=== PATIENT | female | born 1990 | race Caucasian/White ===

== ENCOUNTER 2017-02-11 00:25 | Emergency (ER) | payer OTHER ==
[~2017-02-11] VITALS: Ht 167.6 cm; Wt 108.9 kg
[~2017-02-11 00:25] MED LIST: AMBIEN 10 MG TA10 MG; AMITRIPTYLINE H25 M2 PO; AMOXICILLIN 50500 MG PO; AMRIX15 MG PO; BENADRYL25 MG PO; EFFEXOR XR150 MG PO; FLEXERIL; FLEXERIL PO; GABAPENTIN800 M1 PO; HYDROCODONE-AP1 EAC6 PO; MELATONIN3 MG; MELATONIN3 MG PO; MYRBETRIQ25 MG PO; NEXPLANON68 MG SQ; NORCO 5-325 TA1 EACH PO; ONDANSETRON HCL4 M2 PO; PHENERGAN 25 MG25 M1 PO; PREDNISONE 20 M20 M1 PO; PREDNISONE 20 M20 MG PO; PRILOSEC 20 MG20 MG PO; PROPRANOLOL 20M20 M1 PO; PROTONIX40 M1 PO; TRAZODONE HCL100 MG PO; TRAZODONE HCL50 MG PO; XANAX1 MG; ZANTAC 150MG T150 MG PO; ZOFRAN ODT4 MG PO; ZYPREXA 5 MG TAB5 M2 PO; [UNRECOGNIZED DRUG - OTHER] PO
[2017-02-11] MEDS ORDERED: NORCO 10-325 T1 EACH PO (00:43)
[2017-02-11] MEDS ORDERED: CYPROHEPTADINE 44 MG PO (00:46)
[2017-02-11] MEDS ORDERED: PRAZOSIN 1 MG CA1 M1 PO (00:46)
[2017-02-11] MEDS ORDERED: MAGOX 400400 MG PO (00:47)
[2017-02-11] MEDS ORDERED: ACCUNEB SO1.25 MG/1 INH (00:48)
[2017-02-11 01:03] LABS: URINE BILIRUBIN NEGATIVE (Negative); URINE BLOOD NEGATIVE (Negative); URINE COLOR YELLOW; URINE GLUCOSE-RANDOM* NEGATIVE (Negative); URINE KETONES NEGATIVE (Negative); URINE LEUKOCYTES-REFLEX NEGATIVE (Negative); URINE PROTEIN (DIPSTICK) NEGATIVE (Negative); URINE SPECIFIC GRAVITY <= 1.005 (1.003-1.035); URINE UROBILINOGEN 0.2 E.U./dl (0.2-1.0)
[2017-02-11 01:09] LABS: ABSOLUTE NEUTROPHILS 4.6 thou/uL (1.4-8.2); BASOPHILS 0.8 % (0.0-2.0); EOSINOPHILS 3.9 % (0.0-3.0); LYMPHOCYTES 29.4 % (24.0-44.0); MCH 30.5 pg (26.0-34.0); MCHC 34.1 g/dL (28.0-37.0); MCV 89.3 fL (80.0-100.0); MONOCYTES 8.1 % (1.0-8.0); PLATELET COUNT 259 thou/uL (150-400); POLYS 57.8 % (36.0-66.0); RBC 5.26 mil/uL (4.20-5.00); RDW 14.7 % (10.5-14.5)
[2017-02-11 01:17] LABS: ANION GAP 10 mmol/L (7-16); BUN 8 mg/dL (7-18); CALCIUM 9.1 mg/dL (8.5-10.1); CHLORIDE 106 mmol/L (98-107); CO2 23 mmol/L (21-32); CREATININE 1.1 mg/dL (0.6-1.0); GLUCOSE 107 mg/dL (74-106); POTASSIUM 3.8 mmol/L (3.5-5.1); SODIUM 139 mmol/L (136-145)
[2017-02-11 01:21] LABS: ALBUMIN 3.7 g/dL (3.4-5.0); ALKALINE PHOSPHATASE 164 U/L (46-116); DIRECT BILIRUBIN < 0.1 mg/dL (<0.1-0.3); SGOT 29 U/L (15-37); SGPT 34 U/L (30-65); TOTAL BILIRUBIN 0.3 mg/dL (<0.1-1.0); TOTAL PROTEIN 7.1 g/dL (6.4-8.2)
[2017-02-11 01:24] LABS: MANUAL DIFF NO
[2017-02-11 02:39] VITALS: BP 120/66
[2017-02-12] MEDS ORDERED: NORCO 5-325 TA1 EAC1 PO (17:40)
== END 2017-02-11 02:42 | disposition home or self-care (01) ==
LOC: ER 00:25
PROVIDERS: Emergency Medicine
DX: R10.31 Right lower quadrant pain (principal); F41.9 Anxiety disorder, unspecified; K31.84 Gastroparesis; F31.9 Bipolar disorder, unspecified; F43.10 Post-traumatic stress disorder, unspecified; F17.210 Nicotine dependence, cigarettes, uncomplicated; Z90.49 Acquired absence of other specified parts of digestive tract; Z88.8 Allergy status to other drugs, medicaments and biological substances; Z88.6 Allergy status to analgesic agent

== ENCOUNTER 2017-02-11 23:56 | Emergency (ER) | payer OTHER ==
[~2017-02-11 23:56] MED LIST changes: +ACCUNEB SO1.25 MG/1 INH; +CYPROHEPTADINE 44 MG PO; +MAGOX 400400 MG PO; +NORCO 10-325 T1 EACH PO; +PRAZOSIN 1 MG CA1 M1 PO
[2017-02-12] MEDS ORDERED: NORCO 5-325 TA1 EAC1 PO (17:40)
== END 2017-02-12 10:11 | disposition left against medical advice (07) ==
LOC: ER 23:56
DX: Z53.21 Procedure and treatment not carried out due to patient leaving prior to being seen by health care provider (principal)

== ENCOUNTER 2021-09-09 14:38 | Emergency (ER) | payer OTHER ==
[~2021-09-09] VITALS: Ht 167.6 cm; Wt 93.0 kg
[~2021-09-09 14:38] MED LIST changes: +ADDERALL 20 MG20 M1 PO; +CARAFATE 11 GM/10 M1; +LATUDA80 MG; +NORCO 5-325 TA1 EAC1 PO; +REXULTI3 MG PO
[2021-09-09 15:35] LABS: ABSOLUTE NEUTROPHILS 4.9 thou/uL (1.4-8.2); BASOPHILS 0.9 % (0.0-2.0); EOSINOPHILS 1.4 % (0.0-3.0); HEMATOCRIT 47.3 % (37.0-47.0); HEMOGLOBIN 16.3 gm/dL (12.0-15.0); LYMPHOCYTES 23.9 % (24.0-44.0); MCH 34.1 pg (26.0-34.0); MCHC 34.5 g/dL (28.0-37.0); MCV 99.1 fL (80.0-100.0); PLATELET COUNT 237 thou/uL (150-400); POLYS 65.8 % (36.0-66.0); RBC 4.77 mil/uL (4.20-5.00); RDW 12.5 % (10.5-14.5); WBC 7.5 thou/uL (4.0-11.0)
[2021-09-09 15:42] LABS: URINE BILIRUBIN NEGATIVE (Negative); URINE BLOOD TRACE (Negative); URINE CLARITY CLEAR; URINE COLOR YELLOW; URINE GLUCOSE-RANDOM* NEGATIVE (Negative); URINE KETONES NEGATIVE (Negative); URINE LEUKOCYTES-REFLEX NEGATIVE (Negative); URINE NITRITE-REFLEX NEGATIVE (Negative); URINE PROTEIN (DIPSTICK) NEGATIVE (Negative); URINE UROBILINOGEN 0.2 E.U./dl (0.2-1.0)
[2021-09-09 15:54] LABS: CALCIUM 9.3 mg/dL (8.5-10.1); CREATININE 0.9 mg/dL (0.6-1.0); POTASSIUM 3.7 mmol/L (3.5-5.1)
[2021-09-09 16:00] LABS: ALBUMIN 3.6 g/dL (3.4-5.0); TOTAL BILIRUBIN 0.3 mg/dL (0.2-1.0); TOTAL PROTEIN 7.1 g/dL (6.4-8.2)
[2021-09-09] MEDS ORDERED: ONDANSETRON HCL4 M2 PO (17:13)
[2021-09-09] MEDS ORDERED: NAPROSYN500 MG PO (17:13)
[2021-09-09 18:11] VITALS: BP 120/80
== END 2021-09-09 18:11 | disposition home or self-care (01) ==
LOC: ER 14:38
PROVIDERS: Emergency Medicine
DX: R10.11 Right upper quadrant pain (principal); F41.9 Anxiety disorder, unspecified; K31.84 Gastroparesis; F31.9 Bipolar disorder, unspecified; F17.210 Nicotine dependence, cigarettes, uncomplicated; Z90.49 Acquired absence of other specified parts of digestive tract; Z98.890 Other specified postprocedural states; Z79.51 Long term (current) use of inhaled steroids; Z79.891 Long term (current) use of opiate analgesic; Z79.899 Other long term (current) drug therapy; Z88.5 Allergy status to narcotic agent; Z88.6 Allergy status to analgesic agent; Z88.8 Allergy status to other drugs, medicaments and biological substances